=== PATIENT | female | born 1965 | race Caucasian/White ===

== ENCOUNTER 2017-11-22 14:49 | Emergency (ER) | payer BC ==
[2017-11-22 15:00] VITALS: RESP 16
--- NOTE | 2017-11-22 15:31 | ED PDOC ---
HPI: Chest Pain Time Seen by Provider: 11/22/17 15:00 Chief Complaint (Nursing): Chest Pain Chief Complaint (Provider): Chest pain History Per: Patient History/Exam Limitations: no limitations Onset/Duration Of Symptoms: Hrs Current Symptoms Are (Timing): Still Present Quality: "Pain" Additional History Per: Patient Additional Complaint(s): 52yo female with no past medical history, presents to ER with complaints of right sided chest pain, present for the past 1 hour with radiation to her jaw which has now resolved. She denies any associated fever, chills, cough or URI symptoms. Patient states her chest pain has resolved but the jaw pain still persists. Patient denies any leg swelling, recent long distance travels as well. She has no other complaints. - Risk Factors PE Risk Factors: Neg: Decreased Mobilty /Activity Past Medical History Reviewed: Historical Data, Nursing Documentation, Vital Signs Vital Signs: Last Vital Signs Temp 98.4 F 11/22/17 19:52 Pulse 80 11/22/17 19:52 Resp 16 11/22/17 19:52 BP 122/74 11/22/17 19:52 Pulse Ox 98 11/22/17 19:52 - Medical History PMH: No Chronic Diseases - Surgical History Surgical History: No Surg Hx - Family History Family History: States: Hypertension (father) - Social History Current smoker - smoking cessation education provided: No Ex-Smoker (has not smoked in the last 12 months): No Alcohol: None Drugs: Denies - Allergies Allergies/Adverse Reactions: Allergies Allergy/AdvReac Type Severity Reaction Status Date / Time No Known Allergies Allergy Verified 11/22/17 14:57 Review of Systems ROS Statement: Except As Marked, All Systems Reviewed And Found Negative Constitutional: Negative for: Fever, Chills ENT: Positive for: Other (jaw pain) Cardiovascular: Positive for: Chest Pain (right sided 1 hour ago, now resolved) Respiratory: Negative for: Cough Gastrointestinal: Negative for: Nausea, Vomiting Physical Exam - Reviewed Nursing Documentation Reviewed: Yes Vital Signs Reviewed: Yes - Physical Exam Appears: Positive for: Non-toxic Head Exam: Positive for: ATRAUMATIC Skin: Positive for: Normal Color, Warm, Dry Eye Exam: Positive for: Normal appearance ENT: Positive for: Normal ENT Inspection Neck: Positive for: Supple Cardiovascular/Chest: Positive for: Regular Rate, Rhythm, Chest Non Tender. Negative for: Murmur Respiratory: Positive for: Normal Breath Sounds. Negative for: Wheezing Gastrointestinal/Abdominal: Positive for: Normal Exam Back: Positive for: Normal Inspection Extremity: Positive for: Normal ROM Neurologic/Psych: Positive for: Alert, Oriented - Laboratory Results Result Diagrams: 11/22/17 15:45 11/22/17 15:45 - ECG ECG: Positive for: Interpreted By Me, Viewed By Me Interpretation Of ECG: Normal sinus rhythm Normal QRS No ST/T wave changes Rate: 78 O2 Sat by Pulse Oximetry: 99 (RA) Pulse Ox Interpretation: Normal Medical Decision Making Medical Decision Making: Impression: Atypical chest pain that has resolved. pt without PE risk factors and no prior cardiac risk factors. Plan: -- CXR -- EKG -- Labs -- Aspiring 325 mg PO 16:35 Patient reports feeling much better, denies any chest pain or jaw pain. 17:00 --Patient will be signed out to Dr. Metzger, pending repeat troponin and EKG Scribe Attestation: Documented by Toma Mensah acting as a scribe for Aleksey Alcala MD. Provider Scribe Attestation: All medical record entries made by the Scribe were at my direction and personally dictated by me. I have reviewed the chart and agree that the record accurately reflects my personal performance of the history, physical exam, medical decision making, and the department course for this patient. I have also personally directed, reviewed, and agree with the discharge instructions and disposition. Disposition - Clinical Impression Clinical Impression: Atypical chest pain - Patient ED Disposition Is Patient to be Admitted: Transfer of Care - Disposition Referrals: Chad Felton [Medical Doctor] - ([facility] OFFICE IS NOW IN [facility]. SAME NUMBER. ) Disposition: Transfer of Care Disposition Time: 17:00 Condition: STABLE Additional Instructions: FOLLOW UP WITH A PRIMARY CARE DOCTOR IN 1-2 DAYS FOR REEVALUATION RETURN TO ER FOR WORSENING SYMPTOMS Instructions: Chest Pain (ED) Forms: [facility] ED School/Work Excuse
[2017-11-22 15:54] LABS: BASO % 0.9 % (0.0-2.0); EOS # 0.1 K/uL (0.0-0.7); EOS % 2.7 % (0.0-4.0); HEMOGLOBIN 13.3 g/dL (12.0-16.0); LYMPH # 1.5 K/uL (1.0-4.3); LYMPH % 29.4 % (20.0-40.0); MEAN CELL VOLUME 90.4 fl (81.0-99.0); MEAN CORPUSCULAR HEMOGLOBIN 30.4 pg (27.0-31.0); MEAN CORPUSCULAR HGB CONC 33.6 g/dL (33.0-37.0); MEAN PLATELET VOLUME 7.3 fl (7.2-11.7); MONO # 0.3 K/uL (0.0-0.8); MONO % 6.7 % (0.0-10.0); NEUT % 60.3 % (50.0-75.0); NRBC % 0.1 % (0.0-0.0); RBC 4.38 Mil/uL (3.80-5.20); RED CELL DISTRIBUTION WIDTH 12.9 % (11.5-14.5); WHITE BLOOD COUNT 4.9 K/uL (4.8-10.8)
[2017-11-22 16:12] LABS: ALB/GLOB RATIO 1.4 (1.0-2.1); ALBUMIN 4.6 g/dL (3.5-5.0); ALT/SGPT 33 U/L (9-52); AST/SGOT 26 U/L (14-36); BLOOD UREA NITROGEN 12 mg/dl (7-17); CALCIUM 9.6 mg/dL (8.4-10.2); GFR AFRICAN-AMERICAN > 60; GFR NON-AFRICAN AMERICAN > 60
--- NOTE | 2017-11-22 16:17 | RAD ---
HISTORY: chest pain COMPARISON: 02/19/2011 TECHNIQUE: Chest PA and lateral FINDINGS: LUNGS: No active pulmonary disease. PLEURA: No significant pleural effusion identified. No pneumothorax apparent. CARDIOVASCULAR: Normal. OSSEOUS STRUCTURES: No significant abnormalities. VISUALIZED UPPER ABDOMEN: Normal. OTHER FINDINGS: None. IMPRESSION: No active disease. No significant interval change compared to the prior examination(s).
--- NOTE | 2017-11-22 17:28 | ED PDOC ---
- Laboratory Results Result Diagrams: 11/22/17 15:45 11/22/17 15:45 - ECG O2 Sat by Pulse Oximetry: 99 (RA) Pulse Ox Interpretation: Normal Medical Decision Making Medical Decision Makin Patient signed out to me by Dr. Alcala pending repeat troponin and EKG. 1999 Repeat trop negative Repeat EKG unremarkable DW pt findings. Stable for DC. Followup referral given. Scribe Attestation: Documented by Toma Mensah acting as a scribe for Eboni Metzger MD. Provider Attestation: All medical record entries made by the Scribe were at my direction and personally dictated by me. I have reviewed the chart and agree that the record accurately reflects my personal performance of the history, physical exam, medical decision making, and the department course for this patient. I have also personally directed, reviewed, and agree with the discharge instructions and disposition. Disposition - Clinical Impression Clinical Impression: Atypical chest pain - POA Present On Arrival: None - Disposition Referrals: Chad Felton [Medical Doctor] - ([facility] OFFICE IS NOW IN [facility]. SAME NUMBER. ) Disposition: Routine/Home Disposition Time: 20:00 Condition: STABLE Additional Instructions: FOLLOW UP WITH A PRIMARY CARE DOCTOR IN 1-2 DAYS FOR REEVALUATION RETURN TO ER FOR WORSENING SYMPTOMS Instructions: Chest Pain (ED) Forms: [facility] ED School/Work Excuse
[2017-11-22 19:53] VITALS: BP 122/74; TEMP 98.4
--- NOTE | 2017-11-23 14:19 | CARD ---
APPROVED REPORT EKG Measurement Heart [id number] IL 160P [id number] <Conclusion> Normal sinus rhythm Incomplete RBBB Borderline ECG
--- NOTE | 2017-11-23 14:35 | CARD ---
APPROVED REPORT EKG Measurement Heart [id number] <Conclusion> Probable sinus rhythm baseline artefact
[2017-11-29 09:11] VITALS: PULSE 78; O2SAT 99
== END 2017-11-22 20:59 | disposition home or self-care (01) ==
LOC: H.ER 14:49
DX: R07.89 Other chest pain (principal); Z87.891 Personal history of nicotine dependence